=== PATIENT | female | born 1990 | race Caucasian/White ===

== ENCOUNTER → 2017-04-23 | Outpatient (REF) | payer BC ==
[2017-04-23 18:17] LABS: BARBITURATES URINE REFLEX NEGATIVE (NEGATIVE); BENZODIAZEPINES URINE REFLEX NEGATIVE (NEGATIVE); CANNABINOIDS URINE REFLEX NEGATIVE (NEGATIVE); COCAINE METABOLITE URINE REFLE NEGATIVE (NEGATIVE); METHADONE URINE REFLEX NEGATIVE (NEGATIVE); OPIATES URINE REFLEX NEGATIVE (NEGATIVE); PHENCYCLIDINE URINE REFLEX NEGATIVE (NEGATIVE)
[2017-04-23 18:23] LABS: AMPHETAMINES URINE REFLEX POSITIVE (NEGATIVE)
[2017-04-28 08:08] LABS: Amphetamine Positive (.); Amphetamines Positive (.); GC Amphetamine >4000 ng/mL (Cutoff=500); Methamphetamine Negative (Cutoff=500)
== END ==
LOC: M LAB REF 15:35
DX: F90.8 Attention-deficit hyperactivity disorder, other type (principal)
CPT/HCPCS: G0480

== ENCOUNTER → 2017-11-03 | Outpatient (REF) | payer BC ==
[2017-11-03 15:18] LABS: CHLAMYDIA DNA AMPLIFICATION NEGATIVE (NEGATIVE); GC DNA AMPLIFICATION NEGATIVE (NEGATIVE)
== END ==
LOC: M LAB REF 12:52
DX: Z11.3 Encounter for screening for infections with a predominantly sexual mode of transmission (principal); Z12.4 Encounter for screening for malignant neoplasm of cervix
CPT/HCPCS: 87591

== ENCOUNTER 2017-11-22 03:04 | Emergency (ER) | payer SELFPAY, BC | END 2017-11-22 03:45 | disposition left against medical advice (07) | LOC: M ED 03:04 | DX: Z53.29 Procedure and treatment not carried out because of patient's decision for other reasons (principal) ==